=== PATIENT | female | born 1965 | race Caucasian/White ===

== ENCOUNTER 2017-08-11 10:24 | Emergency (ER) | payer OTHER ==
[~2017-08-11] VITALS: Ht 165.1 cm; Wt 114.3 kg
[2017-08-11 10:49] LABS: CASTS None Seen /LPF (None Seen); CRYSTALS None Seen /LPF (None Seen); ICTOTEST (BILI CONFIRMATORY) ND (Negative); SQUAMOUS >10 Many /LPF (0-3); URINE BILIRUBIN 1+ (Negative); URINE BLOOD 2+ (Negative); URINE CLARITY CLOUDY; URINE COLOR YELLOW; URINE GLUCOSE-RANDOM NEGATIVE (Negative); URINE KETONES NEGATIVE (Negative); URINE LEUKOCYTES-REFLEX 1+ (Negative); URINE NITRITE-REFLEX POSITIVE (Negative); URINE PROTEIN 2+ (Negative); URINE SPECIFIC GRAVITY >= 1.030 (1.005-1.030); URINE UROBILINOGEN 0.2 E.U./dl (0.2-1.0)
[2017-08-11 10:50] LABS: BACTERIA-REFLEX >30 Many /HPF (None Seen); URINE RBC 3-10 Few /HPF (0-2); URINE WBC-REFLEX >25 Many /HPF (0-5); WBC CLUMPS Few (None Seen)
[2017-08-11] MEDS ORDERED: LYRICA 50 MG50 MG PO (10:56)
[2017-08-11] MEDS ORDERED: OMEPRAZOLE 20 M20 MG PO (10:57)
[2017-08-11] MEDS ORDERED: AMBIEN 5 MG TABL5 M1 PO (10:57)
[2017-08-11] MEDS ORDERED: PREMARIN0.625 MG PO (10:58)
[2017-08-11] MEDS ORDERED: CYMBALTA60 MG PO (10:58)
[2017-08-11] MEDS ORDERED: TRAMADOL 50 MG50 MG PO (10:59)
[2017-08-11] MEDS ORDERED: LISINOPRIL10 MG PO (10:59)
[2017-08-11] MEDS ORDERED: ZOCOR20 MG PO (10:59)
[2017-08-11] MEDS ORDERED: AMITRIPTYLINE H10 M1 PO (11:00)
[2017-08-11] MEDS ORDERED: NORCO 5-325 TA1 EACH PO (11:01)
[2017-08-11] MEDS ORDERED: ACYCLOVIR 400400 MG PO (11:01)
[2017-08-11] MEDS ORDERED: BUTALB-APAP-CA1 EACH PO (11:01)
[2017-08-11] MEDS ORDERED: PROAIR RESPICL90 MCG INH (11:02)
[2017-08-11] MEDS ORDERED: MOBIC15 MG PO (11:02)
[2017-08-11 11:14] LABS: HEMATOCRIT 38.8 % (37.0-47.0); MCH 29.7 pg (26.0-34.0); MCHC 33.6 g/dL (28.0-37.0); MCV 88.3 fL (80.0-100.0); MPV 8.3 fl. (7.2-11.1); NUCLEATED RBCS 0 /100WBC; PLATELET COUNT* 182 thou/uL (150-400); RDW-CV 13.7 % (10.5-14.5); WBC 7.5 thou/uL (4.0-11.0)
[2017-08-11 11:22] LABS: CALCIUM 8.5 mg/dL (8.5-10.1); POTASSIUM 3.5 mmol/L (3.5-5.1)
[2017-08-11 11:26] LABS: ALBUMIN 3.4 g/dL (3.4-5.0); TOTAL BILIRUBIN 0.3 mg/dL (<0.1-1.0); TOTAL PROTEIN 7.2 g/dL (6.4-8.2)
[2017-08-11 11:32] LABS: ABSOLUTE BASOPHILS 0.1 thou/uL (0.0-0.2); ABSOLUTE EOSINOPHILS 0.1 thou/uL (0.0-0.7); ABSOLUTE LYMPHOCYTES 0.8 thou/uL (0.8-5.3); ABSOLUTE MONOCYTES 0.3 thou/uL (0.0-1.2); ABSOLUTE NEUTROPHILS 6.3 thou/uL (1.6-8.1); PLATELET ESTIMATE ADEQUATE
[2017-08-11] MEDS ORDERED: MACROBID 100 M100 M1 PO (13:41)
[2017-08-11] MEDS ORDERED: MIRALAX17 GM PO (13:41)
[2017-08-11 14:00] VITALS: BP 143/91
== END 2017-08-11 14:00 | disposition home or self-care (01) ==
LOC: M.ERS 10:24
PROVIDERS: Nurse Practitioner Family
DX: N39.0 Urinary tract infection, site not specified (principal); K59.00 Constipation, unspecified; R31.9 Hematuria, unspecified; I10 Essential (primary) hypertension; Z90.711 Acquired absence of uterus with remaining cervical stump; Z88.8 Allergy status to other drugs, medicaments and biological substances

== ENCOUNTER → 2019-05-16 | Outpatient (CLI) | payer BC ==
[~2019-05-16] MED LIST: ACYCLOVIR 400400 MG PO; AMBIEN 5 MG TABL5 M1 PO; AMITRIPTYLINE H10 M1 PO; BUTALB-APAP-CA1 EACH PO; CYMBALTA60 MG PO; LISINOPRIL10 MG PO; LYRICA 50 MG50 MG PO; MACROBID 100 M100 M1 PO; MIRALAX17 GM PO; MOBIC15 MG PO; NORCO 5-325 TA1 EACH PO; OMEPRAZOLE 20 M20 MG PO; PREMARIN0.625 MG PO; PROAIR RESPICL90 MCG INH; TRAMADOL 50 MG50 MG PO; ZOCOR20 MG PO
== END ==
LOC: M.LAB 03:57
DX: E87.6 Hypokalemia (principal)

== ENCOUNTER 2021-01-26 11:41 | Emergency (ER) | payer BC ==
[~2021-01-26] VITALS: Ht 165.1 cm; Wt 115.7 kg
[~2021-01-26 11:41] MED LIST changes: -AMBIEN 5 MG TABL5 M1 PO; -AMITRIPTYLINE H10 M1 PO; +AMITRIPTYLINE H50 M2 PO; +ESTRACE2 M3 PO; +LISINOPRIL-HCT1 EAC1 PO; -LISINOPRIL10 MG PO; +LUNESTA3 MG PO; -PREMARIN0.625 MG PO
[2021-01-26] MEDS ORDERED: NORVASC10 MG PO (12:00)
[2021-01-26] MEDS ORDERED: AMITIZA 24 MCG24 MCG PO (12:02)
[2021-01-26 14:58] LABS: URINE BILIRUBIN NEGATIVE (Negative); URINE BLOOD 2+ (Negative); URINE CLARITY CLEAR; URINE COLOR YELLOW; URINE GLUCOSE-RANDOM NEGATIVE (Negative); URINE KETONES 1+ (Negative); URINE LEUKOCYTES TRACE (Negative); URINE NITRITE NEGATIVE (Negative); URINE PROTEIN 1+ (Negative); URINE SPECIFIC GRAVITY 1.025 (1.005-1.030)
[2021-01-26 15:07] LABS: CASTS None Seen /LPF (None Seen); CRYSTALS None Seen /LPF (None Seen); SQUAMOUS 0-3 Few /LPF (0-3); URINE RBC 0-2 Rare /HPF (0-2); URINE WBC 6-15 Few /HPF (0-5)
[2021-01-26] MEDS ORDERED: ZOFRAN ODT4 MG PO (15:19)
[2021-01-26] MEDS ORDERED: CEPHALEXIN500 MG PO (15:19)
[2021-01-26 15:54] VITALS: BP 120/79
== END 2021-01-26 15:54 | disposition home or self-care (01) ==
LOC: M.ERS 11:41
PROVIDERS: Emergency Medicine
DX: N12 Tubulo-interstitial nephritis, not specified as acute or chronic (principal); Z20.822 Contact with and (suspected) exposure to COVID-19; R42 Dizziness and giddiness; I10 Essential (primary) hypertension; Z88.6 Allergy status to analgesic agent; Z79.899 Other long term (current) drug therapy; Z90.710 Acquired absence of both cervix and uterus